=== PATIENT | female | born 1975 | race Caucasian/White ===

== ENCOUNTER 2020-07-11 11:45 | Day surgery (SDC) | payer OTHER, SELFPAY ==
[2020-07-11] VITALS (8 sets, daily range): BP systolic 104–122; BP diastolic 68–76; PULSE 52–72; RESP 12–16; TEMP 36–36.4; O2SAT 97–100; BMI 29.5
--- NOTE | 2020-07-11 08:25 | PM.HP.1 ---
History of Present Illness History of Present Illness Chief complaint: SDC Narrative: 44-year-old female with a history of alcoholic cirrhosis and history of variceal bleeding here for variceal surveillance; patient was last seen at our office on 06/07/2020. Please refer to that office note for further details Patient History Surgical History (Updated 07/21/17 @ 05:56 by Conversion Provider) Status post cholecystectomy Status post hysterectomy Family & Social History Family History (Updated 03/31/16 @ 00:00 by Conversion Provider) Mother Age: 60 Mental health problem Sister Age: 45 Fibroids Meds Home Medications and Allergies Home Medications Medication Instructions Recorded Confirmed Type esomeprazole magnesium [Nexium] QDAY #0 02/21/16 History gabapentin [Neurontin] SEE INSTRUCTIONS #0 02/21/16 History oxycodone SEE INSTRUCTIONS #0 02/21/16 History gabapentin [Neurontin] 0 PO SEE INSTRUCTIONS #540 tab 02/18/17 Rx Allergies Allergy/AdvReac Type Severity Reaction Status Date / Time Penicillins [PENICILLINS] Allergy Unknown Unverified 07/01/17 12:18 sulfamethoxazole Allergy Unknown Unverified 07/01/17 12:18 [From SEPTRA] trimethoprim [From SEPTRA] Allergy Unknown Unverified 07/01/17 12:18 Exam Narrative Exam Narrative: General: Patient is overweight, not in apparent distress Cardiovascular: Regular rate and rhythm, no murmurs, rubs, or gallops; no evidence of edema; no palpable abdominal aortic aneurysm Gastrointestinal: Normoactive bowel sounds, soft, nontender, nondistended, no rebound tenderness, no hepatosplenomegaly, no evidence of hernia Assessment & Plan Assessment & Plan narrative: 44-year-old female with history of alcohol cirrhosis here for variceal surveillance
[2020-07-11 12:52] LABS: COVID19 -Nasal RAPID Negative (Negative)
[2020-07-11] MEDS: SODIUM CHLORIDE 0.9% 1,000 ML 70 ML IV (13:41)
--- NOTE | 2020-07-11 14:29 | P.OP.ENDO_ITS ---
Operative Date/Time/Diagnoses Date of procedure: 07/11/20 Procedure Notes Procedure in detail: Surgeon: Ton Hook MD Procedure: Esophagogastroduodenoscopy Preoperative diagnosis: Cirrhosis, variceal surveillance Postoperative diagnosis: 3 columns small esophageal varices, small gastric varices (GOV2), mild portal hypertensive gastropathy Medications: Monitored anesthesia care, due to history alcohol and need for possible banding Preanesthesia Assessment An H and P was performed/updated and the Px?s ASA class is 3. The procedure was discussed in detail with the patient. The potential risks and complications including infection, bleeding, missed lesions, perforation, need for surgery in case of perforation, prolonged hospital stay, and were explained. A brief question and answer period was allotted and once all questions were answered, informed consent was obtained. The patient was brought back to the procedure room and placed on standard monitoring. The patient?s vital signs were monitored continuously throughout the entire procedure. Prior to starting, a timeout was performed to confirm the patient?s identity, allergies, medications, and procedure. Procedure in detail The patient was placed in left lateral decubitus position and a bite block was inserted. The tip of the upper endoscope was placed into the mouth and advanced without difficulty under direct visualization into the esophagus. Esophagus: There were 3 columns of small esophageal varices (approximately 5mm), in the distal esophagus with no evidence of high-risk stigmata. No banding was performed Stomach: Mild portal hypertensive gastropathy in the cardia, fundus, and body; small gastric fundus varices (GOV2) Duodenum: Normal examined duodenum to the 2nd portion The patient tolerated the procedure well and will be brought back to the recovery area to be discharged once criteria are met. Complications There were no complications and estimated blood loss was zero. Recommendations: Resume previous diet Continue outPx medications Follow up pathology results Repeat EGD in 1 year for surveillance Call our office ([facility]) to schedule follow-up with Dr. Nagel An emergency contact number was given to the patient for any complications related to the procedure
== END 2020-07-11 15:48 | disposition home or self-care (01) ==
PROVIDERS: Referring Provider Internal Medicine Gastroenterology; Visit Provider Internal Medicine Gastroenterology
PROC: 0DJ08ZZ Inspection of Upper Intestinal Tract, Via Natural or Artificial Opening Endoscopic (ICD-10-PCS; CPT 43235; principal; 2020-07-11 14:30)
DX: Z09 Encounter for follow-up examination after completed treatment for conditions other than malignant neoplasm (principal); Z87.19 Personal history of other diseases of the digestive system; G61.82 Multifocal motor neuropathy; Z20.822 Contact with and (suspected) exposure to COVID-19; K21.9 Gastro-esophageal reflux disease without esophagitis; K70.30 Alcoholic cirrhosis of liver without ascites; I85.10 Secondary esophageal varices without bleeding; F10.21 Alcohol dependence, in remission; I86.4 Gastric varices; K76.6 Portal hypertension; K31.89 Other diseases of stomach and duodenum
CPT/HCPCS: 43235; 87635; J2250; J2704; J3010

== ENCOUNTER 2020-09-17 18:14 | Emergency (ER) | payer OTHER, SELFPAY ==
[2020-09-17 18:18] VITALS: BP 102/66; PULSE 68; RESP 20; TEMP 37.5; O2SAT 98
--- NOTE | 2020-09-17 20:00 | ED.SKABFB ---
HPI - Skin/Abscess/Foreign Bdy General Chief complaint: Skin/Abscess/Foreign Body Stated complaint: Boil on Inside of Buttcheek Time Seen by Provider: 09/17/20 19:19 Source: patient Mode of arrival: Ambulatory History of Present Illness HPI narrative: Patient is a 44-year-old female here for evaluation of which he thinks is a boil on the inside of her right butt cheek. She states that is been there for the past couple days. It is not draining. She has had things like this in the past that have need drained but never in this area. No fevers. Related Data Home Medications Medication Instructions Recorded Confirmed duloxetine 60 mg capsule,delayed 60 mg PO DAILY 07/11/20 07/11/20 release pregabalin 50 mg capsule 50 mg PO BID 07/11/20 07/11/20 propranolol 20 mg tablet 20 mg PO DAILY 07/11/20 07/11/20 spironolactone 50 mg tablet 75 mg PO BID 07/11/20 07/11/20 Previous Rx's Medication Instructions Recorded doxycycline hyclate 100 mg tablet 100 mg PO BID 7 Days #14 tab 09/17/20 Allergies Allergy/AdvReac Type Severity Reaction Status Date / Time Penicillins [PENICILLINS] Allergy Unknown Verified 07/11/20 13:37 sulfamethoxazole Allergy Unknown Verified 07/11/20 13:37 [From SEPTRA] trimethoprim [From SEPTRA] Allergy Unknown Verified 07/11/20 13:37 Review of Systems Constitutional Comments: No fevers Gastrointestinal Comments: No abdominal discomfort, no change in bowel habits Genitourinary Genitourinary: Reports system reviewed and no additional complaints, except as documented Musculoskeletal Musculoskeletal: Reports system reviewed and no additional complaints, except as documented Integumentary/Breasts Comments: I a sore on the inside of her right buttocks Hematologic/Lymphatic On Anticoagulants: No Patient History Medical History Abscess Surgical History (Updated 07/21/17 @ 05:56 by Conversion Provider) Status post cholecystectomy Status post hysterectomy Family History (Updated 03/31/16 @ 00:00 by Conversion Provider) Mother Age: 60 Mental health problem Sister Age: 45 Fibroids Social History household members: spouse Smoking Status: Current every day smoker alcohol intake: never Smoking Status: Current every day smoker Substance Use Type: marijuana Exam Initial Vital Signs Initial Vital Signs: Vital Signs Temperature 99.5 F 09/17/20 18:18 Pulse Rate 68 09/17/20 18:18 Respiratory Rate 20 09/17/20 18:18 Blood Pressure 102/66 09/17/20 18:18 Pulse Oximetry 98 09/17/20 18:18 Const General: cooperative and healthy appearing Resp Effort & Inspection: normal respiratory effort Cardio Rate: regular rate Skin Other: Patient does have a 1 cm area of induration on her right buttocks that is just near the intergluteal cleft. There is no drainage. Neuro General: patient alert and patient awake Extrem General: normal to inspection Course Orders Ordered: Discontinued Medications Doxycycline Hyclate (Doxycycline Hyclate 100 Mg Tablet) 100 mg PO NOW ONE Stop: 09/17/20 20:01 Last Admin: 09/17/20 20:17 Dose: 100 mg Documented by: KGALLAG Vital Signs Vital signs: Vital Signs - 8 hr 09/17/20 20:24 Pulse Rate 82 Respiratory Rate 18 Blood Pressure 105/66 Pulse Oximetry 99 MDM - Skin/Abscess/Foreign Bdy MDM Narrative Medical decision making narrative: The area in question on her right buttocks is most consistent with a cellulitis and potentially a very small abscess. It is very well defined. I have low suspicion for perianal or perirectal abscess given her presentation. Also feel given the size of the lesion today that an incision and drainage is most likely not going to be helpful. Plan will be is to start the patient on antibiotics. We did discuss this. She was given strict return precautions. She expressed understanding agreement. Discharge Plan Departure Patient Disposition: Home Clinical Impression: Cellulitis Instructions: DI for Cellulitis -- Adult Activity Restrictions/Additional Instructions: Start taking the antibiotics as directed. Like we discussed if the symptoms worsen despite these antibiotics we do need to re-evaluate you as we potentially will need to drain the area. Contact your primary provider for follow-up. Prescriptions: New doxycycline hyclate 100 mg tablet 100 mg PO BID 7 Days Qty: 14 RF: 0 No Action propranolol 20 mg Tablet 20 mg PO DAILY RF: 0 pregabalin 50 mg Capsule 50 mg PO BID RF: 0 spironolactone 50 mg Tablet 75 mg PO BID RF: 0 duloxetine 60 mg Capsule,Delayed Release(Dr/Ec) 60 mg PO DAILY RF: 0
[2020-09-17] MEDS: DOXYCYCLINE HYCLATE 100 MG TABLET PO (20:17)
[2020-09-17 20:24] VITALS: BP 105/66; PULSE 82; RESP 18; O2SAT 99
== END 2020-09-17 20:25 | disposition home or self-care (01) ==
PROVIDERS: Emergency Provider Emergency Medicine
DX: L03.317 Cellulitis of buttock (principal)
CPT/HCPCS: 99283

== ENCOUNTER 2021-01-11 00:50 | Emergency (ER) | payer OTHER, SELFPAY ==
[2021-01-11 01:10] VITALS: BP 154/88; PULSE 62; RESP 14; TEMP 36.8; O2SAT 99; BMI 28.3
--- NOTE | 2021-01-11 01:53 | DI.CT.S_ITS ---
PROCEDURE: CT ABDOMEN PELVIS W CON INDICATIONS: right lower quadrant abdominal pain TECHNIQUE: After the administration of intravenous contrast, axial sections acquired from the lung bases to the pubic symphysis. Coronal and sagittal reformats were performed. For radiation dose reduction, the following was used: automated exposure control, adjustment of mA and/or kV according to patient size. COMPARISON: [facility], CT, CT ABDOMEN PELVIS WITH CONTRAST, 05/15/2017, 20:40. FINDINGS: Image quality: Image degraded by moderate patient motion artifact. Lung bases: Unremarkable. Heart: No significant findings. ABDOMEN: Liver: Diffuse hepatic steatosis. Gallbladder: Status post cholecystectomy. Biliary ducts: No intrahepatic or extrahepatic biliary ductal dilatation identified. Pancreas: Homogeneous enhancement without focal lesions or pancreatic ductal dilatation. No peripancreatic inflammation or organized fluid collections. Spleen: A few calcified granulomas in the spleen. No splenomegaly. Adrenal Glands: Unremarkable. Kidneys and Ureters: Kidneys are symmetric in size and enhancement, and there is no obstructive uropathy. No perinephric inflammatory changes. Ureters are normal in course and caliber. Small hypodensity in the upper pole the left kidney is too small to accurately characterize but likely represents a cyst. Stomach and Bowel: No evidence for bowel obstruction. Appendix appears normal with air-filled tip. No periappendiceal stranding. Nonspecific fluid-filled ascending colon without wall thickening or inflammatory changes. No evidence for bowel obstruction. Stable appearance of gastric antrum and pylorus compared to 2018 exam. Peritoneum: No abnormal intraperitoneal fluid. No free air. Ventral Wall: No hernia. Abdominal Nodes: No retroperitoneal or mesenteric adenopathy by size criteria. Vessels: Aorta and inferior vena cava are normal in size. PELVIS: Pelvic Organs: Status post hysterectomy. Bladder: Unremarkable. Pelvic Nodes: No enlarged lymph nodes. Miscellaneous: No inguinal hernias are seen. Bones: Unremarkable. IMPRESSION: 1. Nonspecific fluid within the ascending colon without evidence for obstruction, wall thickening or inflammatory changes. The appendix appears normal. 2. Hepatic steatosis. 3. Status post cholecystectomy. No significant discrepancy with the power and recovery shift engineer radiology preliminary report. Dictated by: Ran Stevenson M.D. on 01/11/2021 at 7:00 Approved by: Ran Stevenson M.D. on 01/11/2021 at 7:07
--- NOTE | 2021-01-11 01:59 | ED_ITS ---
HPI - GI Bleed General Chief complaint: GI Bleed Stated complaint: rectal bleeding Time Seen by Provider: 01/11/21 01:10 Source: patient Mode of arrival: Ambulatory Limitations: no limitations History of Present Illness HPI Narrative: 45-year-old woman presents with severe right lower abdomen pelvis flank cramping that started this evening. She has a complex medical history that includes autoimmune hepatitis exacerbated by alcohol use with history of esophageal varices, upper GI bleed most recently 2 years ago requiring 2 unit transfusion, chronic hemorrhoidal bleeding for the last year and has not been able to the schedule a colonoscopy. 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 The majority of her providers are at [facility]. She denies any recent fevers but reports chronic chills and night sweats, recent decreased appetite, over the last month has noticed rectal prolapse with any bowel movement which is made the chronic rectal bleeding a bit worse. She denies headaches, chest pain, palpitations no nausea and no vomiting. She has not been having difficulties with constipation. Related Data Home Medications Medication Instructions Recorded Confirmed duloxetine 60 mg capsule,delayed 60 mg PO DAILY 07/11/20 07/11/20 release pregabalin 50 mg capsule 50 mg PO BID 07/11/20 07/11/20 propranolol 20 mg tablet 20 mg PO DAILY 07/11/20 07/11/20 spironolactone 50 mg tablet 75 mg PO BID 07/11/20 07/11/20 Allergies Allergy/AdvReac Type Severity Reaction Status Date / Time Penicillins [PENICILLINS] Allergy Unknown Verified 07/11/20 13:37 sulfamethoxazole Allergy Unknown Verified 07/11/20 13:37 [From SEPTRA] trimethoprim [From SEPTRA] Allergy Unknown Verified 07/11/20 13:37 Review of Systems Review of Systems Narrative: Remainder of complete review of systems is otherwise unremarkable except for that included in the HPI. Patient History Medical History Abscess Alcohol use disorder Autoimmune hepatitis Chronic GERD MMN (multifocal motor neuropathy) Rectal bleeding Surgical History Status post cholecystectomy Status post hysterectomy Family History Mother Age: 60 Mental health problem Sister Age: 45 Fibroids Social History household members: spouse Smoking Status: Current every day smoker alcohol intake: never Smoking Status: Current every day smoker Substance Use Type: marijuana Exam Narrative Exam Narrative: General: Healthy appearing, in moderate distress. Able to give a complete and coherent history. Well-nourished well-developed HEENT: Moist mucous membranes, normal sclera with reactive pupils, Neck: supple Respiratory: Lungs are clear to auscultation, no wheezing no rales no rhonchi. Full and symmetrical air movement Cardiac: Regular rate and rhythm no murmurs no bruits Abdomen: Soft, tender in the right lower pelvis right lower quadrant right flank distribution without rebound or guarding. Hepatosplenomegaly appreciated. Skin: Warm and dry, no jaundice Neurologic: Grossly neurologically intact with no obvious asymmetries or abnormalities Extremities: No trauma, well perfused Psych: Cooperative, appropriate insight and affect Initial Vital Signs Initial Vital Signs: Vital Signs Temperature 98.3 F 01/11/21 01:10 Pulse Rate 62 01/11/21 01:10 Respiratory Rate 14 01/11/21 01:10 Blood Pressure 154/88 H 01/11/21 01:10 Pulse Oximetry 99 01/11/21 01:10 Course Orders Ordered: ED Orders 01/11/21 01:49 COVID19 - ADMIT (VIDEOTAPE SALES REPRESENTATIVE swab/PCR) Stat Complete Blood Count AUTO DIFF Stat Comprehensive Metabolic Panel Stat 01/11/21 01:53 CT abdomen pelvis w con Stat Magnesium Stat Vital Signs Vital signs: Vital Signs - 8 hr 01/11/21 01:10 Temperature 98.3 F Pulse Rate 62 Respiratory Rate 14 Blood Pressure 154/88 H Pulse Oximetry 99 MDM - GI Bleed Lab Data Result diagrams: 01/11/21 02:15 01/11/21 02:15 Labs: Lab Results 01/11/21 01/11/21 01/11/21 Range/Units 02:15 02:15 02:15 WBC 8.3 (4.5-11.0) X10^3/uL RBC 4.45 (4.0-5.2) X10^6/uL Hgb 14.3 (12.0-16.0) g/dL Hct 41.6 (36-46) % MCV 93.4 (80-100) fL MCH 32.1 (26-34) PG MCHC 34.4 (30-36) % RDW 13.8 (11.6-14.8) % Plt Count 213 (150-400) X10^3/uL Neut % (Auto) 41.3 L (50-75) % Lymph % (Auto) 46.3 H (25-40) % Piatt % (Auto) 8.5 (3-14) % Eos % (Auto) 3.0 (2-4) % Baso % (Auto) 0.9 (0-2) % Neut # (Auto) 3400 (6691-8002) /uL Lymph # (Auto) 3800 (1875-3868) /uL Piatt # (Auto) 700 (0-900) /uL Eos # (Auto) 200 (0-450) /uL Baso # (Auto) 100 (0-100) /uL Sodium 137 (137-145) mmol/L Potassium 3.6 (3.4-5.1) mmol/L Chloride 103 (98-107) mmol/L Carbon Dioxide 28 (22-32) mmol/L BUN 7 (7-17) mg/dL Creatinine 0.72 (0.52-1.04) mg/dL Estimated GFR > 60.0 (>60) mL/min BUN/Creatinine Ratio 9.7 (6-22) Glucose 115 H (70-100) mg/dL Calcium 9.7 (8.4-10.2) mg/dL Magnesium 1.8 (1.6-2.3) mg/dL Total Bilirubin 0.5 (0.2-1.3) mg/dL AST 40 H (14-36) IU/L ALT 22 (<35) IU/L Alkaline Phosphatase 112 (38-126) U/L Total Protein 8.6 H (6.3-8.2) g/dL Albumin 4.1 (3.5-5.0) g/dL Globulin 4.5 H (1.7-4.1) g/dL Albumin/Globulin Ratio 0.9 L (1.0-2.8) SARS-CoV-2 (PCR) (Negative) 01/11/21 Range/Units 02:15 WBC (4.5-11.0) X10^3/uL RBC (4.0-5.2) X10^6/uL Hgb (12.0-16.0) g/dL Hct (36-46) % MCV (80-100) fL MCH (26-34) PG MCHC (30-36) % RDW (11.6-14.8) % Plt Count (150-400) X10^3/uL Neut % (Auto) (50-75) % Lymph % (Auto) (25-40) % Piatt % (Auto) (3-14) % Eos % (Auto) (2-4) % Baso % (Auto) (0-2) % Neut # (Auto) (2075-5381) /uL Lymph # (Auto) (9041-3777) /uL Piatt # (Auto) (0-900) /uL Eos # (Auto) (0-450) /uL Baso # (Auto) (0-100) /uL Sodium (137-145) mmol/L Potassium (3.4-5.1) mmol/L Chloride (98-107) mmol/L Carbon Dioxide (22-32) mmol/L BUN (7-17) mg/dL Creatinine (0.52-1.04) mg/dL Estimated GFR (>60) mL/min BUN/Creatinine Ratio (6-22) Glucose (70-100) mg/dL Calcium (8.4-10.2) mg/dL Magnesium (1.6-2.3) mg/dL Total Bilirubin (0.2-1.3) mg/dL AST (14-36) IU/L ALT (<35) IU/L Alkaline Phosphatase (38-126) U/L Total Protein (6.3-8.2) g/dL Albumin (3.5-5.0) g/dL Globulin (1.7-4.1) g/dL Albumin/Globulin Ratio (1.0-2.8) SARS-CoV-2 (PCR) Negative (Negative) Urine Dip Bedside Urine Glucose Negative Bedside Urine Bilirubin - Negative Bedside Urine Ketone - Negative Urine Specific [place] 1.010 Bedside Urine Occult Blood - Negative Bedside Urine pH 6.0 Bedside Urine Protein - Negative Bedside Urine Urobilinogen - Negative Bedside Urine Nitrite - Negative Bedside Urine Leukocytes - Negative Esterase Imaging Data CT scan - abdomen/pelvis: Radiologist's Impression: The appendix is normal. Fluid-filled ascending colon without wall thickening, inflammation or obstruction. Syed Stewart MD ECG Data Interpretation: Sinus rhythm at a rate of 65 Normal intervals, normal axis No acute ischemic changes MDM Narrative Medical decision making narrative: 45-year-old woman with complex medical history presents with right lower quadrant pain. Been having chronic hemorrhoidal bleeding and does note over the last few days she has had some constipation as she has not been at home recently she has been drinking quite a bit of water to try to relieve that. Today she did have a bowel movement that was quite firm followed by some liquid stool that was associated with cramping similar to the cramping she is experiencing now. CT scan would suggest that there is additional liquid stool forming in the ascending colon. All of these findings are reviewed with her. She is quite relieved. At this time, there is no evidence of acute GI bleeding either upper or lower, infection, diverticulitis, appendicitis or any need for hospitalization at this time. She does have continued chronic rectal bleeding with mild rectal prolapse and does have appropriate follow-up scheduled with Gastroenterology in the near future. At this time she is safe for home discharge Discharge Plan Departure Patient Disposition: Home Clinical Impression: Abdominal cramping Activity Restrictions/Additional Instructions: Thank you for coming in today Your workup today was very reassuring. You are not anemic despite the chronic hemorrhoidal bleeding with rectal prolapse. It does look like your body is trying to alleviate the constipation and there was quite a bit of fluid in the right side of your colon. You described hard bowel movement followed by diarrhea and may expect that there is a bit more diarrhea to come. There is no evidence at this point that there is GI bleeding of significant concern and your hematocrit and hemoglobin are reassuring we n ormal. Please follow-up with all of your prior providers including the stock control supervisor regarding the hemorrhoidal bleeding and rectal prolapse. I hope you feel better Prescriptions: No Action propranolol 20 mg Tablet 20 mg PO DAILY RF: 0 pregabalin 50 mg Capsule 50 mg PO BID RF: 0 spironolactone 50 mg Tablet 75 mg PO BID RF: 0 duloxetine 60 mg Capsule,Delayed Release(Dr/Ec) 60 mg PO DAILY RF: 0
[2021-01-11 02:33] LABS: Add Manual Diff / Slide Review NO; Basophils Absolute Auto 100 /uL (0-100); Basophils Percent Auto 0.9 % (0-2); Eosinophils Absolute Auto 200 /uL (0-450); Hematocrit 41.6 % (36-46); Hemoglobin 14.3 g/dL (12.0-16.0); Lymphocytes Absolute Auto 3800 /uL (1100-4500); Lymphocytes Percent Auto 46.3 % (25-40); Mean Corpuscular HGB Conc 34.4 % (30-36); Mean Corpuscular Hemoglobin 32.1 PG (26-34); Mean Corpuscular Volume 93.4 fL (80-100); Monocytes Absolute Auto 700 /uL (0-900); Monocytes Percent Auto 8.5 % (3-14); Neutrophils Absolute Auto 3400 /uL (1500-7000); Neutrophils Percent Auto 41.3 % (50-75); Platelet Count 213 X10^3/uL (150-400); Red Blood Cell Count 4.45 X10^6/uL (4.0-5.2); Red Cell Distribution Width 13.8 % (11.6-14.8); White Blood Cell Count 8.3 X10^3/uL (4.5-11.0)
[2021-01-11 02:36] LABS: Alanine Aminotransferase 22 IU/L (<35); Albumin 4.1 g/dL (3.5-5.0); Albumin Globulin Ratio 0.9 (1.0-2.8); Alkaline Phosphatase 112 U/L (38-126); Aspartate Aminotransferase 40 IU/L (14-36); BUN Creatinine Ratio 9.7 (6-22); Bilirubin Total 0.5 mg/dL (0.2-1.3); Blood Urea Nitrogen 7 mg/dL (7-17); Calcium 9.7 mg/dL (8.4-10.2); Carbon Dioxide 28 mmol/L (22-32); Chloride 103 mmol/L (98-107); Estimated Glomerular Filt Rate > 60.0 mL/min (>60); Globulin 4.5 g/dL (1.7-4.1); Glucose 115 mg/dL (70-100); HEMOLYSIS < 15 (0-50); Potassium 3.6 mmol/L (3.4-5.1); Sodium 137 mmol/L (137-145); Total Protein 8.6 g/dL (6.3-8.2)
[2021-01-11 02:57] LABS: Magnesium 1.8 mg/dL (1.6-2.3)
[2021-01-11 03:21] LABS: COVID19 - ADMIT (NP swab/PCR) Negative (Negative)
[2021-01-11 04:22] VITALS: BP 96/70; PULSE 71; RESP 15; O2SAT 98
== END 2021-01-11 04:24 | disposition home or self-care (01) ==
PROVIDERS: Emergency Provider Emergency Medicine
DX: R10.31 Right lower quadrant pain (principal); R03.0 Elevated blood-pressure reading, without diagnosis of hypertension; Z20.822 Contact with and (suspected) exposure to COVID-19
CPT/HCPCS: 36415; 74177; 80053; 81003; 83735; 85025; 87635; 93005; 93010; 99283; 99284; C9803; Q9967

== ENCOUNTER → 2021-01-28 11:46 | Outpatient (CLI) | payer OTHER, SELFPAY ==
--- NOTE | 2021-01-28 | DI.US.S_ITS ---
PROCEDURE: US ABDOMEN LIMITED INDICATIONS: CIRRHOSIS TECHNIQUE: Real-time focused scanning was performed of the abdomen, with image documentation. COMPARISON: [facility], MR, MR ABDOMEN WITH/WITHOUT CONTRAST, 02/26/2019, 11:03. [facility] Ultrasound, US, US ABDOMEN COMPLETE, 09/06/2019, 12:45. [facility], CT, CT ABDOMEN PELVIS W CON, 01/11/2021, 2:01. FINDINGS: The liver demonstrates normal size. The liver demonstrates generalized mildly increased echogenicity, with a coarse echotexture. This decreases ultrasound sensitivity for detection of hepatic masses. The main portal vein demonstrates normal size and demonstrates normal appearing, hepatopetal flow. The gallbladder has been removed. There is no biliary dilatation, the common bile duct measures 6 mm. No significant pancreatic abnormality is seen on these images. IMPRESSION: Cirrhotic liver, without focal liver abnormality. Status post cholecystectomy, without biliary dilatation. Dictated by: Sesar Knowles M.D. on 01/28/2021 at 12:23 Approved by: Sesar Knowles M.D. on 01/28/2021 at 12:24
== END ==
PROVIDERS: PCP Internal Medicine; Referring Provider Student in an Organized Health Care Education/Training Program; Visit Provider Internal Medicine
DX: K74.60 Unspecified cirrhosis of liver (principal); Z90.49 Acquired absence of other specified parts of digestive tract
CPT/HCPCS: 76705

== ENCOUNTER 2021-10-23 23:44 | Emergency (ER) | payer OTHER, SELFPAY ==
[2021-10-24 00:01] VITALS: BP 127/73; PULSE 74; RESP 28; O2SAT 96
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
--- NOTE | 2021-10-24 00:26 | ED_ITS ---
HPI - Neuro Symptoms/Deficit General Chief Complaint: Neuro Symptoms/Deficit Stated Complaint: Neuropathy Time Seen by Provider: 10/24/21 00:17 Source: patient Mode of arrival: EMS History of Present Illness HPI Narrative: 45-year-old female smoker with extensive alcohol history including esophageal varices and hepatitis as well as multifocal motor neuropathy presents by EMS for evaluation of seizure and shaking. She states that she was in her normal state of health until later in the day when she felt herself had a seizure and states she was aware of it, stating that she was seeing black spots and shaky. She is unaware of how long it lasted. She denies any headache or blurred vision. She denies any chest pain but does feel short of breath. She denies any change in her medications. She states that her neuropathy is managed by Dr. Bland at [facility] and she receives IV IG through the port in her chest every 4 weeks, the next round will be started on November 11. She is had no recent trauma or injury and does not use blood thinners. She is had no nausea, vomiting, diarrhea or abdominal pain On Anticoagulants: No Related Data Home Medications Medication Instructions Recorded Confirmed duloxetine 60 mg capsule,delayed 60 mg PO DAILY 07/11/20 07/11/20 release pregabalin 50 mg capsule 50 mg PO BID 07/11/20 07/11/20 propranolol 20 mg tablet 20 mg PO DAILY 07/11/20 07/11/20 spironolactone 50 mg tablet 75 mg PO BID 07/11/20 07/11/20 Allergies Allergy/AdvReac Type Severity Reaction Status Date / Time Penicillins [PENICILLINS] Allergy Unknown Verified 07/11/20 13:37 sulfamethoxazole Allergy Unknown Verified 07/11/20 13:37 [From ] trimethoprim [From ] Allergy Unknown Verified 07/11/20 13:37 Review of Systems Review of Systems Narrative: GENERAL: Denies chills, fatigue, malaise, fever, sweats. HEENT: Denies sinus pain, ear pain, sore throat, difficulty swallowing, dizziness. RESPIRATORY: See HPI CARDIOVASCULAR: See HPI GASTROINTESTINAL: Denies nausea, vomiting, abdominal pain, diarrhea, constipation, melena. : Denies dysuria, frequency, incontinence, hematuria, urinary retention. MUSCULOSKELETAL: denies weakness, joint pain, or bony pain SKIN: Denies rash, skin lesions, or other NEUROLOGIC: See HPI PSYCHIATRIC: No concerning psychosocial issues. 12 point review of systems is negative except for those stated above Hematologic/Lymphatic On Anticoagulants: No Patient History Medical History Abscess Alcohol use disorder Autoimmune hepatitis Chronic GERD MMN (multifocal motor neuropathy) Rectal bleeding Surgical History Status post cholecystectomy Status post hysterectomy Family History Mother Age: 61 Mental health problem Sister Age: 46 Fibroids Social History household members: spouse Smoking Status: Current every day smoker alcohol intake: never Smoking Status: Current every day smoker Substance Use Type: marijuana Exam Narrative Exam Narrative: GENERAL: [45] year old patient appears stated age. Well-developed patient, in mild distress. Anxious, tearful HEAD: Atraumatic. Normocephalic. EYES: Pupils equal round and reactive. Extraocular motions intact. No scleral icterus. No injection or drainage. ENT: Nose without bleeding, purulent drainage. Throat without erythema, tonsi llar hypertrophy or exudate. Airway patent. NECK: Trachea midline. Non tender CARDIOVASCULAR: Regular rate and rhythm without murmurs, gallops, or rubs. RESPIRATORY: Clear to auscultation. Breath sounds equal bilaterally. No wheezes, rales, or rhonchi. GASTROINTESTINAL: Abdomen soft, non-tender, nondistended. EXTREMITIES: No edema or joint tenderness. BACK: Nontender without deformity or crepitance. No flank tenderness. NEURO: AOx3. Tremulous SKIN: No rash or erythema of visible areas Initial Vital Signs Initial Vital Signs: Vital Signs Pulse Rate 74 10/24/21 00:01 Respiratory Rate 28 H 10/24/21 00:01 Blood Pressure 127/73 10/24/21 00:01 Pulse Oximetry 96 10/24/21 00:01 Oxygen Delivery Method 10/24/21 00:01 Course Orders Ordered: ED Orders 10/24/21 00:06 Consult to PER DIEM PHYSICAL THERAPIST - Supervisor Elementary Education Stat 10/24/21 00:37 CT head/brain wo con Stat Hepatitis Acute Panel Stat 10/24/21 01:05 Complete Blood Count AUTO DIFF Stat Comprehensive Metabolic Panel Stat D Dimer Stat Ethanol (ETOH) Stat Lipase Stat Magnesium Stat 10/24/21 03:57 XR chest 2V Stat 10/24/21 03:58 COVID19 -Nasal RAPID/Pre-Proc Stat Discontinued Medications Sodium Chloride (Normal Saline 0.9%) 1,000 mls @ 1,000 mls/hr IV BOLUS ONE Stop: 10/24/21 01:36 Last Admin: 10/24/21 00:58 Dose: 1,000 mls/hr Documented By: NR Ondansetron HCl (Ondansetron 4 Mg/2 Ml Inj) 4 mg IV NOW ONE Stop: 10/24/21 00:38 Last Admin: 10/24/21 00:58 Dose: 4 mg Documented By: NR Vital Signs Vital signs: Vital Signs - 8 hr 10/24/21 00:01 Pulse Rate 74 Respiratory Rate 28 H Blood Pressure 127/73 Pulse Oximetry 96 Oxygen Delivery Method Room Air MDM - Neuro Symptoms/Deficit Lab Data Result diagrams: 10/24/21 01:05 10/24/21 01:05 Labs: Lab Results 10/24/21 10/24/21 10/24/21 Range/Units 01:05 01:05 01:05 WBC 9.0 (4.5-11.0) X10^3/uL RBC 4.29 (4.0-5.2) X10^6/uL Hgb 13.7 (12.0-16.0) g/dL Hct 39.0 (36-46) % MCV 91.0 (80-100) fL MCH 31.9 (26-34) PG MCHC 35.0 (30-36) % RDW 13.3 (11.6-14.8) % Plt Count 283 (150-400) X10^3/uL Neut % (Auto) 46.0 L (50-75) % Lymph % (Auto) 40.4 H (25-40) % Hudson % (Auto) 10.0 (3-14) % Eos % (Auto) 2.1 (2-4) % Baso % (Auto) 1.5 (0-2) % Neut # (Auto) 4100 (3646-5723) /uL Lymph # (Auto) 3600 (0271-9300) /uL Hudson # (Auto) 900 (0-900) /uL Eos # (Auto) 200 (0-450) /uL Baso # (Auto) 100 (0-100) /uL D-Dimer 300 H (<230) ng/mL Sodium (137-145) mmol/L Potassium (3.4-5.1) mmol/L Chloride (98-107) mmol/L Carbon Dioxide (22-32) mmol/L BUN (7-17) mg/dL Creatinine (0.52-1.04) mg/dL Estimated GFR (>60) mL/min BUN/Creatinine Ratio (6-22) Glucose (70-100) mg/dL Calcium (8.4-10.2) mg/dL Magnesium (1.6-2.3) mg/dL Total Bilirubin (0.2-1.3) mg/dL AST (14-36) IU/L ALT (<35) IU/L Alkaline Phosphatase (38-126) U/L Total Protein (6.3-8.2) g/dL Albumin (3.5-5.0) g/dL Globulin (1.7-4.1) g/dL Albumin/Globulin Ratio (1.0-2.8) Lipase (23-300) U/L Ethyl Alcohol < 10 ( - 10) mg/dL 10/24/21 Range/Units 01:05 WBC (4.5-11.0) X10^3/uL RBC (4.0-5.2) X10^6/uL Hgb (12.0-16.0) g/dL Hct (36-46) % MCV (80-100) fL MCH (26-34) PG MCHC (30-36) % RDW (11.6-14.8) % Plt Count (150-400) X10^3/uL Neut % (Auto) (50-75) % Lymph % (Auto) (25-40) % Hudson % (Auto) (3-14) % Eos % (Auto) (2-4) % Baso % (Auto) (0-2) % Neut # (Auto) (7774-5120) /uL Lymph # (Auto) (5748-9251) /uL Hudson # (Auto) (0-900) /uL Eos # (Auto) (0-450) /uL Baso # (Auto) (0-100) /uL D-Dimer (<230) ng/mL Sodium 136 L (137-145) mmol/L Potassium 3.8 (3.4-5.1) mmol/L Chloride 103 (98-107) mmol/L Carbon Dioxide 26 (22-32) mmol/L BUN 14 (7-17) mg/dL Creatinine 0.71 (0.52-1.04) mg/dL Estimated GFR > 60 (>60) mL/min BUN/Creatinine Ratio 19.7 (6-22) Glucose 104 H (70-100) mg/dL Calcium 9.0 (8.4-10.2) mg/dL Magnesium 1.9 (1.6-2.3) mg/dL Total Bilirubin 0.3 (0.2-1.3) mg/dL AST 28 (14-36) IU/L ALT 18 (<35) IU/L Alkaline Phosphatase 123 (38-126) U/L Total Protein 9.2 H (6.3-8.2) g/dL Albumin 3.9 (3.5-5.0) g/dL Globulin 5.3 H (1.7-4.1) g/dL Albumin/Globulin Ratio 0.7 L (1.0-2.8) Lipase 99 (23-300) U/L Ethyl Alcohol ( - 10) mg/dL Imaging Data CT scan - head: Radiologist's Impression: CARYN Chest x-ray: Radiologist's Impression: CARYN [facility] Narrative Medical decision making narrative: Multiple etiologies for patient's symptoms considered including: [Possible focal seizure versus electrolyte abnormality versus anemia versus anxiety versus other] Patient's symptoms improved over duration of stay with above-stated therapies. Findings and discharge diagnosis discussed with patient/family followed by verbalization of understanding Return precautions discussed with patient/family whom verbalize understanding. Discharge Plan Departure Patient Disposition: Home Clinical Impression: Anxiety related tremor, Seizure-like activity Activity Restrictions/Additional Instructions: *You have been diagnosed with [possible seizure-like activity. History and physical exam are reassuring, labs show no significant abnormalities and CT scan of your head as well as chest x-ray are unremarkable. There is no obvious diagnosis that would require a specific or immediate intervention or treatment] *What to do: *Please continue to take your regular medications as directed. [ ] New medication prescriptions sent to your pharmacy: [ ] [ ] New medication written as a paper prescription [ x] No new medications given *Please follow up with your primary care provider in 2-3 days, call for an appo intment. Let them know you were seen in the Emergency Department and that we ask that you be seen in follow up. We will electronically transmit a record of today's note if your PCP is in our system *If you do not have a primary care provider please contact [facility] Resource line at [phone]. They will ask some questions about your medical history and help get you set up with a doctor in the community. *Return to Emergency Department if you should have any new, worsening or conc erning symptoms, such as [fever greater than 101 F, shaking chills, worsening pain, persistent vomiting or other bothersome symptoms] Prescriptions: No Action propranolol 20 mg Tablet 20 mg PO DAILY pregabalin 50 mg Capsule 50 mg PO BID spironolactone 50 mg Tablet 75 mg PO BID duloxetine 60 mg Capsule,Delayed Release(Dr/Ec) 60 mg PO DAILY Referrals: Arthur Kirkland MD [Primary Care Provider] -
--- NOTE | 2021-10-24 00:37 | DI.CT.S_ITS ---
PROCEDURE: CT HEAD/BRAIN WO CON INDICATIONS: first time seizure TECHNIQUE: Noncontrast 4.5 mm thick angled axial sections acquired from the foramen magnum to the vertex, with coronal and sagittal reformats. For radiation dose reduction, the following was used: automated exposure control, adjustment of mA and/or kV according to patient size. COMPARISON: None. FINDINGS: Image quality: There is mild motion artifact. CSF spaces: Basal cisterns are patent. No extra-axial fluid collections. Ventricles are normal in size and shape. Brain: No intracranial hemorrhage, mass, or mass effect. Carpio-white matter interface appears preserved. Skull and face: Calvarium and visualized facial bones are intact, without suspicious lesions. Sinuses: Visualized sinuses and mastoids are clear. IMPRESSION: 1. No acute intracranial abnormality Dictated by: Kris Gonzalez M.D. on 10/24/2021 at 2:13 Approved by: Kris Gonzalez M.D. on 10/24/2021 at 2:13
[2021-10-24] MEDS: ONDANSETRON 4 MG/2 ML INJ IV (00:58)
[2021-10-24] MEDS: SODIUM CHLORIDE 0.9% 1,000 ML 1000 ML IV (00:58)
[2021-10-24 01:16] LABS: Add Manual Diff / Slide Review NO; Basophils Absolute Auto 100 /uL (0-100); Basophils Percent Auto 1.5 % (0-2); Eosinophils Absolute Auto 200 /uL (0-450); Eosinophils Percent Auto 2.1 % (2-4); Hemoglobin 13.7 g/dL (12.0-16.0); Lymphocytes Absolute Auto 3600 /uL (1100-4500); Lymphocytes Percent Auto 40.4 % (25-40); Mean Corpuscular Hemoglobin 31.9 PG (26-34); Monocytes Absolute Auto 900 /uL (0-900); Neutrophils Absolute Auto 4100 /uL (1500-7000); Platelet Count 283 X10^3/uL (150-400); Red Blood Cell Count 4.29 X10^6/uL (4.0-5.2); Red Cell Distribution Width 13.3 % (11.6-14.8)
[2021-10-24 01:25] LABS: D Dimer 300 ng/mL (<230)
[2021-10-24 01:27] LABS: Alanine Aminotransferase 18 IU/L (<35); Albumin 3.9 g/dL (3.5-5.0); Albumin Globulin Ratio 0.7 (1.0-2.8); Alkaline Phosphatase 123 U/L (38-126); Aspartate Aminotransferase 28 IU/L (14-36); BUN Creatinine Ratio 19.7 (6-22); Bilirubin Total 0.3 mg/dL (0.2-1.3); Blood Urea Nitrogen 14 mg/dL (7-17); Carbon Dioxide 26 mmol/L (22-32); Chloride 103 mmol/L (98-107); Estimated Glomerular Filt Rate > 60 mL/min (>60); Globulin 5.3 g/dL (1.7-4.1); Glucose 104 mg/dL (70-100); HEMOLYSIS < 15 (0-50); Lipase 99 U/L (23-300); Magnesium 1.9 mg/dL (1.6-2.3); Potassium 3.8 mmol/L (3.4-5.1); Sodium 136 mmol/L (137-145); Total Protein 9.2 g/dL (6.3-8.2)
[2021-10-24 02:14] LABS: Ethanol (ETOH) < 10 mg/dL
--- NOTE | 2021-10-24 03:57 | DI.RAD.S_ITS ---
PROCEDURE: XR CHEST 2V INDICATIONS: SOB TECHNIQUE: 2 views of the chest were acquired. COMPARISON: [facility], CR, XR CHEST 1 VIEW, 06/29/2021, 22:39. FINDINGS: Surgical changes and devices: Left Port-A-Cath is unchanged. Lungs and pleura: Lungs are clear. No pleural effusions or pneumothorax. Mediastinum: Mediastinal contours are normal. Heart size is normal. Bones and chest wall: No suspicious bony abnormalities. Soft tissues appear unremarkable. IMPRESSION: No acute pulmonary process. Dictated by: Yesi Meraz M.D. on 10/24/2021 at 8:03 Approved by: Yesi Meraz M.D. on 10/24/2021 at 8:03
[2021-10-24 06:16] VITALS: BP 94/54; PULSE 68; RESP 18; O2SAT 92
[2021-10-25 05:12] LABS: HBsAg Screen Negative (Negative); Hepatitis A Antibody IgM Indeterminate (Negative); Hepatitis B Core Antibody IgM Negative (Negative); Hepatitis C Antibody 0.2 s/co ratio (0.0-0.9)
== END 2021-10-24 06:38 | disposition home or self-care (01) ==
PROVIDERS: Emergency Provider Emergency Medicine; PCP Internal Medicine
DX: R25.1 Tremor, unspecified (principal); R56.9 Unspecified convulsions
CPT/HCPCS: 36415; 70450; 71046; 80053; 80074; 80320; 83690; 83735; 85025; 85379; 96361; 96374; 99283; 99284; J2405